=== PATIENT | female | born 1990 | race Caucasian/White ===

== ENCOUNTER 2021-07-24 11:33 | Emergency (ER) | payer MEDICAID, OTHER ==
[2021-07-24 12:01] VITALS: RESP 18; TEMP 97.1
[2021-07-24] MEDS ORDERED: SODIUM CHLORIDE 0.9% 50 ML IVPB ONE (14:15)
[2021-07-24] MEDS ORDERED: BAMLANIVIMAB (EUA) 700 MG, ETESEVIMAB (EUA) 1,400 MG in SODIUM CHLORIDE 0.9% 50 ML IVPB ONE (14:15)
[2021-07-24 14:25] VITALS: BP 114/72; PULSE 63
--- NOTE | 2021-07-24 15:16 | ED ---
URI HPI - General Chief Complaint: Upper Respiratory Infection Stated Complaint: COVID+/Wants antibodies Time Seen by Provider: 07/24/21 13:47 Source: patient, RN notes reviewed Mode of arrival: ambulatory Limitations: no limitations - Related Data Home Medications Medication Instructions Recorded Confirmed Albuterol Inhaler [Ventolin Hfa 2 puff INHALATION RT-Q4H PRN 07/24/21 07/24/21 Inhaler] Cetirizine HCl [Zyrtec] 10 mg PO HS 07/24/21 07/24/21 Sertraline [Zoloft] 50 mg PO HS 07/24/21 07/24/21 Topiramate [Topamax] 25 mg PO HS 07/24/21 07/24/21 Allergies Allergy/AdvReac Type Severity Reaction Status Date / Time No Known Allergies Allergy Verified 07/24/21 14:05 Review of Systems ROS Statement: Those systems with pertinent positive or pertinent negative responses have been documented in the HPI. ROS Other: All systems not noted in ROS Statement are negative. Past Medical History Past Medical History: No Reported History Additional Past Medical History / Comment(s): migraines History of Any Multi-Drug Resistant Organisms: None Reported Past Surgical History: No Surgical Hx Reported Past Psychological History: Anxiety Smoking Status: Never smoker Past Alcohol Use History: Occasional Past Drug Use History: None Reported General Exam Limitations: no limitations General appearance: alert, in no apparent distress Head exam: Present: atraumatic, normocephalic, normal inspection ENT exam: Present: normal exam, mucous membranes moist Neck exam: Present: normal inspection. Absent: tenderness, meningismus, lymphadenopathy Respiratory exam: Present: normal lung sounds bilaterally. Absent: respiratory distress, wheezes, rales, rhonchi, stridor Cardiovascular Exam: Present: regular rate, normal rhythm, normal heart sounds. Absent: systolic murmur, diastolic murmur, rubs, gallop, clicks Course Vital Signs 07/24/21 07/24/21 11:58 14:24 Temperature 97.1 F L Pulse Rate 65 63 Respiratory 18 18 Rate Blood Pressure 109/80 114/72 O2 Sat by Pulse 100 100 Oximetry Medical Decision Making - Medical Decision Making 31-year-old female presents emergency Department with chief complaint of COVID- 19. Patient states symptoms started last couple days test positive today is here for monoclonal antibodies. Patient denies any sniffing shortness of breath or chest pain. Patient's had increasing fever Bodyaches. chills body aches. Disposition Clinical Impression: COVID-19 Disposition: HOME SELF-CARE Condition: Stable Instructions (If sedation given, give patient instructions): Coronavirus Disease 2019 (COVID-19) Additional Instructions: Please return to the Emergency Department if symptoms worsen or any other concerns. Is patient prescribed a controlled substance at d/c from ED?: No Referrals: Leticia Barbosa MD [Primary Care Provider] - 1-2 days
== END 2021-07-24 16:02 | disposition home or self-care (01) ==
LOC: EC 11:33
DX: U07.1 COVID-19 (principal); F41.9 Anxiety disorder, unspecified; G43.909 Migraine, unspecified, not intractable, without status migrainosus; Z72.89 Other problems related to lifestyle
CPT/HCPCS: 99283; 96365; 96361; J3490

== ENCOUNTER → 2023-06-12 | Outpatient (CLI) | payer OTHER ==
--- NOTE | 2023-06-12 09:34 | US ---
EXAMINATION TYPE: US pelvic complete DATE OF EXAM: 06/12/2023 COMPARISON: NONE CLINICAL INDICATION: Female, 33 years old with history of N92.6 IRREGULAR MENSTRUATION, UNSPECIFIED; dub TECHNIQUE: Transabdominal (TA). Transabdominal sonographic images of the pelvis were acquired. Date of LMP: 06/05/2023 EXAM MEASUREMENTS: Uterus: 8.2 x 3.4 4.2 cm Endometrial Stripe: 0.4 cm Right Ovary: 2.9 x 2.0 x 2.9 cm Left Ovary: 2.8 x 2.0 x 2.1 cm 1. Uterus: Anteverted wnl 2. Endometrium: wnl 3. Right Ovary: wnl 4. Left Ovary: wnl 5. Bilateral Adnexa: wnl 6. Posterior cul-de-sac: no free fluid seen IMPRESSION: 1. Endometrium within normal limits for thickness. 2. No evidence for acute process.
== END | disposition home or self-care (01) ==
LOC: RADUSWWP 07:18
PROVIDERS: ATTEND Family Medicine
DX: N92.6 Irregular menstruation, unspecified (principal)
CPT/HCPCS: 76856